=== PATIENT | male | born 1975 | race Caucasian/White ===

== ENCOUNTER 2017-03-15 13:38 | Emergency (ER) | payer SELFPAY ==
[~2017-03-15] VITALS: Ht 165.1 cm; Wt 83.3 kg
[2017-03-15] MEDS ORDERED: AMOXICILLIN875 MG PO (15:31)
[2017-03-15 15:40] LABS: HEMATOCRIT 46.9 % (38.0-50.0); MCHC 34.1 G/DL (30.0-36.0); MCV 87.8 FL (86-99); MEAN PLAT.VOLUME 10.8 uM^3 (9.0-12.4); PLATELET COUNT 285 K/uL (156-360); RBC DIS.WIDTH-CV 11.9 % (11.8-14.6); RBC DIS.WIDTH-SD 37.8 % (39-53); RED BLOOD COUNT 5.34 M/uL (4.00-5.50); WHITE BLOOD COUNT 8.6 K/uL (4.1-10.2)
[2017-03-15 15:53] LABS: CHLORIDE 105 mEq/L (99-109); POTASSIUM 4.2 mEq/L (3.7-5.4); SODIUM 139 mEq/L (136-147)
[2017-03-15 15:55] LABS: GLUCOSE 90 mg/dL (70-99)
[2017-03-15 15:56] LABS: ANION GAP 11 MEQ/L (2-14)
[2017-03-15 15:59] LABS: ALKALINE PHOSPHATASE 65 IU/L (3-129); GFR ESTIMATE (CALCULATED) > 59 mL/min/
[2017-03-15 16:00] LABS: UREA NITROGEN (BUN) 12 mg/dL (9-23)
[2017-03-15 16:18] LABS: INTERNAL CONTROL VALID? YES; MONOSPOT (MONONUCLEOSIS SEROL) NEGATIVE
[2017-03-15] MEDS ORDERED: XYLOCAINE VISC100 ML MM (16:32)
[2017-03-15 17:00] VITALS: BP 110/70
== END 2017-03-15 17:01 | disposition home or self-care (01) ==
LOC: EME 13:38
PROVIDERS: Physician Assistant Medical
DX: J02.9 Acute pharyngitis, unspecified (principal); R22.1 Localized swelling, mass and lump, neck; Z87.891 Personal history of nicotine dependence
CPT/HCPCS: 80053; 85027; 86308; 87651 90; 99281; 99284